=== PATIENT | male | born 1955 | race Caucasian/White ===

== ENCOUNTER 2016-11-01 07:00 | Emergency (ER) | payer OTHER ==
[~2016-11-01] VITALS: Ht 175.3 cm; Wt 95.3 kg
--- NOTE | 2016-11-01 07:09 | ED NECK/BACK PAIN COMPLAINT ---
History of Present Illness General Chief Complaint: Low Back Pain/Injury Stated Complaint: " SEVERE LOWER BACK PAIN" Source: patient, family, old records Exam Limitations: no limitations Vital Signs & Intake/Output Vital Signs & Intake/Output Vital Signs Date Time Temp Pulse Resp B/P B/P Pulse O2 O2 Flow FiO2 Mean Ox Delivery Rate 11/01 712 98.7 81 18 162/97 99 Room Air Allergies Coded Allergies: No Known Allergies (11/01/16) Reconcile Medications Cholecalciferol (Vitamin D3) 1,000 UNIT TABLET 1 TAB PO DAILY SUPPLEMENT ( Reported) Losartan Potassium 50 MG TABLET 1 TAB PO DAILY HEART (Reported) Metformin HCl 500 MG TABLET 1 TAB PO BID DIABETES (Reported) Simvastatin (Simvastatin*) 40 MG TABLET 1 TAB PO SuTuThSa CHOLESTEROL ( Reported) Triage Nurses Notes Reviewed? yes HPI: Patient woke up on Sunday morning at 1am with right lower back pain that radiaited into his RLQ and down into his testicle. The pain was constant and he radted it at 8 out of 10. There were no aggrevating or mitigating factors. The pain lasted a number of hours and then wnet away. Pt states that it finally went away some time Sunday afternoon. He denies doing anything strenous prior to the pain. He was pain free until 5 am this morning when the same pain woke him up. The pain is similar to Sunday's pain but this time he is also feeling the urge to urinate but on "dribbles are coming out." Past History Medical History Any Pertinent Medical History? see below for history Cardiovascular: hypertension, hyperlipidemia Endocrine: NIDDM Surgical History Surgical History: non-contributory Psychosocial History Tobacco Use: Quit >30 days ago ETOH Use: 1-2 DRINKS PER DAY Illicit Drug Use: denies illicit drug use Family History Hx Contributory? No Review of Systems Review of Systems Constitutional: Reports: no symptoms. Eyes: Reports: no symptoms. Ears, Nose, Throat, Mouth: Reports: no symptoms. Respiratory: Reports: no symptoms. Cardiovascular: Reports: no symptoms. Gastrointestinal/Abdominal: Reports: see HPI, abdominal pain. Musculoskeletal: Reports: see HPI, back pain. Skin: Reports: no symptoms. Neurological/Psychological: Reports: no symptoms. All Other Systems: Reviewed and Negative Physical Exam Physical Exam General Appearance: well developed/nourished, alert, awake, anxious, moderate distress Head: atraumatic Eyes: Bilateral: PERRL, EOMI. Ears, Nose, Throat, Mouth: hearing grossly normal Neck: normal inspection, supple, full range of motion, no midline tenderness Respiratory: normal breath sounds, no respiratory distress, lungs clear Cardiovascular: regular rate/rhythm, normal peripheral pulses Gastrointestinal: normal bowel sounds, soft, non-tender, no organomegaly Back: normal inspection, CVA tenderness (R), PERIVETEBRAL SPAMS IN RIGHT LOWER BACK Extremities: normal range of motion Straight Leg Raising: Right: Negative. Left: Negative. Neurologic/Psych: awake, alert, oriented x 3, normal mood/affect Skin: intact, normal color, warm/dry Progress Differential Diagnosis: AAA, myofascial strain, ureterolithiasis Plan of Care: Orders Procedure Date/time Status URINALYSIS 11/02 727 Complete COMPREHENSIVE METABOLIC PANEL 11/02 727 Complete CBC WITHOUT DIFFERENTIAL 11/02 727 Complete Laboratory Tests 11/01/16 0745: Anion Gap 12, Estimated GFR > 60, BUN/Creatinine Ratio 18.0, Glucose 163 H, Calcium 10.0, Total Bilirubin 0.8, AST 26, ALT 69, Alkaline Phosphatase 59, Total Protein 6.7, Albumin 4.3, Globulin 2.4, Albumin/Globulin Ratio 1.8, CBC w Diff NO MAN DIFF REQ, RBC 4.51 L, MCV 91.2, MCH 31.1 H, RDW 13.7, MPV 10.0, Gran % 83.7 H, Lymphocytes % 10.2 L, Monocytes % 5.5, Eosinophils % 0.3, Basophils % 0.3, Absolute Granulocytes 7.6 H, Absolute Lymphocytes 0.9 L, Absolute Monocytes 0.5, Absolute Eosinophils 0, Absolute Basophils 0, PUBS MCHC 34.1 11/01/16 0743: Urine Color YEL, Urine Clarity CLEAR, Urine pH 6.0, Ur Specific Dewey 1.010, Urine Protein NEG, Urine Ketones NEG, Urine Nitrite NEG, Urine Bilirubin NEG, Urine Urobilinogen 0.2, Ur Leukocyte Esterase NEG, Ur Microscopic SEDIMENT EXAMINED, Urine RBC 3-5, Urine Hemoglobin LARGE H, Urine Glucose NEG Diagnostic Imaging: Viewed by Me: CT Scan. Discussed w/RAD: CT Scan. Radiology Impression: SEE BELOW Comments: PATIENT: MYRA BUTLER PRESENT AGE: 61 PATIENT ACCOUNT NO: [id number] : 59 LOCATION: [facility] ORDERING PHYSICIAN: SAIGE FELIPE MD SERVICE DATE: 11/01/16 EXAM TYPE: CAT - CT ABD & PELVIS W/O IV CONTRAS EXAMINATION: CT ABDOMEN AND PELVIS WITHOUT CONTRAST CLINICAL INFORMATION: Right flank pain. COMPARISON: None TECHNIQUE: Multidetector volumetric imaging was performed from the superior aspect of the liver through the pubic symphysis. Sagittal and coronal reformatted images were obtained on the technologist's workstation. DLP: 708 mGy-cm FINDINGS: LUNG BASES: The visualized lung bases are unremarkable. LIVER, GALLBLADDER, AND BILIARY TREE: The liver is normal in size and shape with decreased attenuation. No focal hepatic lesion or biliary ductal dilatation is present. The gallbladder is unremarkable with no evidence of radiopaque gallstones, gallbladder wall thickening, or obvious pericholecystic inflammatory changes. PANCREAS: Unremarkable. SPLEEN: Unremarkable. ADRENAL GLANDS: Unremarkable. KIDNEYS AND URETERS: The kidneys are normal in size, shape, and attenuation. There is mild right hydroureteronephrosis. There is asymmetric stranding surrounding the right kidney and right ureter. There is a distal ureteral 0.4 cm calculus approximately 3 cm proximal to the ureterovesicular junction. There is an additional 0.3 cm right mid pole nonobstructing calculus 12.5 cm from the posterior axillary line. No left-sided calculi. No left hydronephrosis. BLADDER: Unremarkable. GASTROINTESTINAL TRACT: The stomach and small bowel are unremarkable. No dilated loops of bowel or evidence of obstruction. Colonic diverticulosis without diverticulitis. Normal appendix. No free air or free fluid. ABDOMINAL WALL: Fat-containing right inguinal hernia. LYMPH NODES: Normal. VASCULAR: Mild atherosclerotic calcifications. PELVIC VISCERA: The prostate and seminal vesicles are unremarkable. OSSEOUS STRUCTURES: No acute or suspicious osseous abnormalities. IMPRESSION: Mild right hydroureteronephrosis with a distal ureteral obstructing calculus. Nonobstructing right midpole renal calculus. DICTATED BY: KATHY JAMA MD DATE/TIME DICTATED:11/01/16801 FLANGING ROLL OPERATOR:ANNA DATE/TIME TRANSCRIBED:11/01/16801 CONFIDENTIAL, DO NOT COPY WITHOUT APPROPRIATE AUTHORIZATION. <Electronically signed in Other Vendor System> SIGNED BY: KATHY JAMA MD 11/01 0814 Pt feels much better after IV Toradol. Pain is down to 1 out of 10. Departure Departure Disposition: HOME OR SELF CARE Condition: Stable Clinical Impression Primary Impression: Kidney stone Referrals: TORIE HUMPHRIES,JIMMIE ORTEGA MD,GEOFF Radford (PCP/Family) Additional Instructions: Drink plenty of fluids Follow up with Dr. Edmonds Return if symptoms worsen or for any concerns Departure Forms: Customer Survey General Discharge Information Prescriptions: Current Visit Scripts Tamsulosin HCl (Flomax) 1 CAP PO DAILY #14 CAP Oxycodone HCl/Acetaminophen (Percocet 5-325 MG Tablet) 1-2 TAB PO Q6P PRN PAIN #20 TAB Ibuprofen 1 TAB PO TID PRN PAIN #20 TAB with food Ondansetron (Zofran Odt) 1 TAB SL TID PRN NAUSEA #10 TAB
[2016-11-01 07:59] LABS: ABSOLUTE BASOPHIL COUNT 0 /CUMM (0.0-0.2); ABSOLUTE EOSINOPHIL COUNT 0 /CUMM (0.0-0.7); ABSOLUTE GRANULOCYTE CT 7.6 /CUMM (1.4-6.5); ABSOLUTE LYMPH COUNT 0.9 /CUMM (1.2-3.4); ABSOLUTE MONOCYTE COUNT 0.5 /CUMM (0.10-0.60); BASOPHIL % 0.3 % (0.0-2.0); EOSINOPHIL % 0.3 % (0-5); HEMATOCRIT 41.2 % (42-52); MEAN CORPUSCULAR HGB 31.1 PG (27.0-31.0); MEAN CORPUSCULAR HGB CONC 34.1 G/DL (33.0-37.0); MEAN CORPUSCULAR VOLUME 91.2 FL (80.0-94.0); PLATELET COUNT 190 /CUMM (130-400); RBC DISTRIBUTION WIDTH 13.7 % (11.5-14.5); RED BLOOD CELL CT 4.51 /CUMM (4.70-6.10); WHITE BLOOD CELL COUNT 9.1 /CUMM (4.8-10.8)
[2016-11-01] MEDS ORDERED: METFORMIN HCL500 M3 PO (08:14)
--- NOTE | 2016-11-01 08:14 | CT SCAN REPORT ---
EXAMINATION: CT ABDOMEN AND PELVIS WITHOUT CONTRAST CLINICAL INFORMATION: Right flank pain. COMPARISON: None TECHNIQUE: Multidetector volumetric imaging was performed from the superior aspect of the liver through the pubic symphysis. Sagittal and coronal reformatted images were obtained on the technologist's workstation. DLP: 708 mGy-cm FINDINGS: LUNG BASES: The visualized lung bases are unremarkable. LIVER, GALLBLADDER, AND BILIARY TREE: The liver is normal in size and shape with decreased attenuation. No focal hepatic lesion or biliary ductal dilatation is present. The gallbladder is unremarkable with no evidence of radiopaque gallstones, gallbladder wall thickening, or obvious pericholecystic inflammatory changes. PANCREAS: Unremarkable. SPLEEN: Unremarkable. ADRENAL GLANDS: Unremarkable. KIDNEYS AND URETERS: The kidneys are normal in size, shape, and attenuation. There is mild right hydroureteronephrosis. There is asymmetric stranding surrounding the right kidney and right ureter. There is a distal ureteral 0.4 cm calculus approximately 3 cm proximal to the ureterovesicular junction. There is an additional 0.3 cm right mid pole nonobstructing calculus 12.5 cm from the posterior axillary line. No left-sided calculi. No left hydronephrosis. BLADDER: Unremarkable. GASTROINTESTINAL TRACT: The stomach and small bowel are unremarkable. No dilated loops of bowel or evidence of obstruction. Colonic diverticulosis without diverticulitis. Normal appendix. No free air or free fluid. ABDOMINAL WALL: Fat-containing right inguinal hernia. LYMPH NODES: Normal. VASCULAR: Mild atherosclerotic calcifications. PELVIC VISCERA: The prostate and seminal vesicles are unremarkable. OSSEOUS STRUCTURES: No acute or suspicious osseous abnormalities. IMPRESSION: Mild right hydroureteronephrosis with a distal ureteral obstructing calculus. Nonobstructing right midpole renal calculus.
[2016-11-01] MEDS ORDERED: VITAMIN D31000 UNI2 PO (08:15)
[2016-11-01] MEDS ORDERED: LOSARTAN POTASS50 M1 PO (08:15)
[2016-11-01] MEDS ORDERED: SIMVASTATIN40 M1 PO (08:15)
[2016-11-01 08:21] LABS: GRANULOCYTE % 83.7 % (42.2-75.2)
[2016-11-01] MEDS ORDERED: PERCOCET 5-3251 EACH PO (08:30)
[2016-11-01] MEDS ORDERED: FLOMAX0.4 M1 PO (08:30)
[2016-11-01] MEDS ORDERED: ZOFRAN ODT4 M1 SL (08:30)
[2016-11-01] MEDS ORDERED: IBUPROFEN600 M1 PO (08:30)
[2016-11-01 08:32] VITALS: BP 130/72
== END 2016-11-01 08:38 ==
LOC: ERH 07:00
PROVIDERS: Emergency Medicine
DX: N20.0 Calculus of kidney (principal)
CPT/HCPCS: 74176; 81001; 96361; 96374; J1885

== ENCOUNTER → 2016-11-24 | Day surgery (SDC) | payer OTHER ==
[~2016-11-24] VITALS: Ht 172.7 cm; Wt 91.2 kg
[~2016-11-24] MED LIST: FLOMAX0.4 M1 PO; IBUPROFEN600 M1 PO; LOSARTAN POTASS50 M1 PO; METFORMIN HCL500 M3 PO; PERCOCET 5-3251 EACH PO; SIMVASTATIN40 M1 PO; VITAMIN D31000 UNI2 PO; ZOFRAN ODT4 M1 SL
--- NOTE | 2016-11-24 15:19 | Operative Report ---
Operative/Inv Procedure Report Surgery Date: 11/24/16 Name of Procedure: Right ureteroscopy with laser lithotripsy and stone extraction with stent placement Pre-Operative Diagnosis: right ureteral stone 4mm and right renal stone 3mm Post-Operative Diagnosis: same Estimated Blood Loss: less than 50ml Surgeon/Real Time Operator: JIMMIE VOGT MD Anesthesia: laryngeal mask airway Drains: 6x26cm stent Specimens: stone fragments Complications: none Condition: stable Operative Indication: right groin pain Operative/Procedure Note Note: Operative dictation on patient Darci Collazo. Patient was identified in the holding area and consented for right ureteroscopy with laser lithotripsy stone extraction and stent placement. Risks benefits and alternatives of the surgery were given and the patient wished to proceed. Patient was taken to the operating room placed on the operating table in the supine position. Once timeout was performed IV antibiotic were infused and LMA anesthesia was given. Patient was placed in the dorsal lithotomy position. This prepped and draped in the standard sterile fashion. A cystoscopy was performed and the bladder was globally inspected. There were no lesions or anatomic abnormalities. Ureteral orifices were in their normal location. The ureteral orifice was cannulated with the solo guidewire without difficulty. A semirigid ureteroscope was not able to be passed into the distal ureteral orifice. As a result a ureteral access sheath was then placed after second Solo wire was placed. A flexible ureteroscope was then performed and the renal pelvis was examined. A 3 mm renal stone was identified and this was grasped with the basket and removed without difficulty. This was passed for specimen. The ureteral access sheath was then slowly removed along with the ureteroscope in hopes of finding the distal ureteral stone. In doing so the distal ureteral stone was seen to be embedded in the ureteral wall. This was lasered with a 200 was sent for pathology stone analysis. The wire that was remaining was used to place a 6 x 26 cm ureteral stent. The patient tolerated the procedure well. The bladder was emptied after the stent placement. Findings: stone in renal and ureter Discharge Disposition: PACU
--- NOTE | 2016-11-24 15:44 | RADIOLOGY REPORT ---
EXAMINATION: C-arm fluoroscopy assistance. CLINICAL INDICATION: Right ureteroscopy, lithotripsy, retrograde stent insertion. COMPARISON: None TECHNIQUE: 5 spot radiographs were obtained at the time of the procedure. Fluoroscopy time: 24 seconds. FINDINGS: Multiple spot radiographs were obtained at the time of the right-sided ureteroscopy, lithotripsy and retrograde stent placement. Full procedural detail will be dictated by Dr. Edmonds. IMPRESSION: Right ureteroscopy, lithotripsy and retrograde stent insertion. Full procedural details will be dictated by Dr. Edmonds.
== END ==
LOC: STS 01:57
DX: N20.2 Calculus of kidney with calculus of ureter (principal); E11.8 Type 2 diabetes mellitus with unspecified complications; Z79.84 Long term (current) use of oral hypoglycemic drugs; I10 Essential (primary) hypertension
CPT/HCPCS: 74000; 82355; C2617; J0131; J0690; J2250